=== PATIENT | male | born 1980 | race Asian ===

== ENCOUNTER 2017-01-14 10:39 | Emergency (ER) | payer OTHER ==
[~2017-01-14] VITALS: Ht 172.7 cm; Wt 109.5 kg
[~2017-01-14 10:39] MED LIST: INSLAN SQ; INSU100C3 SQ; LISI-660 PO; PED1TAB. PO
[2017-01-14 11:02] LABS: GLUCOSE,POINT OF CARE 125 MG/DL (70-110)
[2017-01-14 12:45] VITALS: BP 148/92
== END 2017-01-14 13:35 | disposition home or self-care (01) ==
LOC: EMS 10:42
DX: H66.91 Otitis media, unspecified, right ear (principal); E11.9 Type 2 diabetes mellitus without complications; E78.00 Pure hypercholesterolemia, unspecified; I10 Essential (primary) hypertension; F17.210 Nicotine dependence, cigarettes, uncomplicated; F12.90 Cannabis use, unspecified, uncomplicated
CPT/HCPCS: 82962; 99283